=== PATIENT | female | born 1995 | race Asian ===

== ENCOUNTER 2019-04-02 15:25 | Emergency (ER) | payer OTHER ==
[2019-04-02 15:58] VITALS: BP 108/76
--- NOTE | 2019-04-02 17:42 | UC ---
Abdominal Pain Female HPI - HPI Summary HPI Summary: The patient is a 24-year-old female with a 3 day history of suprapubic abdominal pain radiating to her rectum. She has no UTI symptoms. She denies any vaginal discharge or itch. She denies any history of ovarian cysts. She has had nausea. She denies any vomiting or diarrhea. She denies any fever or chills. Her appetite has been fine. - History of Current Complaint Chief Complaint: UCAbdominalPain Stated Complaint: ABDOMINAL PAIN Time Seen by Provider: 04/02/19 17:35 Hx Obtained From: Patient Hx Last Menstrual Period: 03/09/19 Onset/Duration: Gradual Onset, Lasting Days Timing: Constant Severity Initially: Mild Severity Currently: Moderate Pain Intensity: 4 Pain Scale Used: 0-10 Numeric Location: Suprapubic Radiates: Yes Radiates to: Other - rectum Character: Sharp Aggravating Factor(s): Other: - sitting Alleviating Factor(s): Nothing Associated Signs and Symptoms: Positive: Decreased Appetite, Nausea. Negative: Diaphoresis, Fever, Cough, Chest Pain, Dizzy, Back Pain, Constipation, Blood in Stool, Urinary Symptoms, Vaginal Bleeding, Vaginal Discharge, Vomiting, Diarrhea Allergies/Adverse Reactions: Allergies Allergy/AdvReac Type Severity Reaction Status Date / Time No Known Allergies Allergy Verified 04/02/19 15:58 PMH/Surg Hx/FS Hx/Imm Hx Previously Healthy: Yes - Surgical History Surgical History: None - Family History Known Family History: Positive: Non-Contributory - Social History Alcohol Use: None Substance Use Type: None Smoking Status (MU): Never Smoked Tobacco Review of Systems All Other Systems Reviewed And Are Negative: Yes Constitutional: Positive: Negative Skin: Positive: Negative Eyes: Positive: Negative ENT: Positive: Negative Respiratory: Positive: Negative Cardiovascular: Positive: Negative Gastrointestinal: Positive: Abdominal Pain Genitourinary: Positive: Negative Motor: Positive: Negative Neurovascular: Positive: Negative Musculoskeletal: Positive: Negative Neurological: Positive: Negative Psychological: Positive: Negative Physical Exam Triage Information Reviewed: Yes Appearance: Well-Appearing, No Pain Distress, Well-Nourished Vital Signs: Initial Vital Signs Temp 99.3 F 04/02/19 15:51 Pulse 110 04/02/19 15:51 Resp 16 04/02/19 15:51 BP 108/76 04/02/19 15:51 Pulse Ox 100 04/02/19 15:51 Vital Signs Reviewed: Yes Eyes: Positive: Conjunctiva Clear ENT: Positive: Hearing grossly normal, Uvula midline. Negative: Nasal congestion, Nasal drainage, Trismus, Muffled voice, Hoarse voice Dental Exam: Normal Neck: Positive: Supple, Nontender, No Lymphadenopathy Respiratory: Positive: Lungs clear, Normal breath sounds, No respiratory distress, No accessory muscle use, Respiratory distress Cardiovascular: Positive: RRR, No Murmur Abdomen Description: Positive: Soft, Guarding. Negative: Nontender - tender suprapubically, CVA Tenderness (R), CVA Tenderness (L) Pelvic Exam: Positive: Other - pt refused Musculoskeletal Exam: Normal Neurological Exam: Normal Neurological: Positive: Alert Psychological Exam: Normal Skin Exam: Normal Diagnostics - Laboratory Lab Results: pt is a virgin and declines transvaginal U/S as well a pelvic exam - Radiology No standard instances Radiology Interpretation Completed By: Radiologist Summary of Radiographic Findings: RIGHT OVARIAN CYSTS. Abd Pain Female Course/Dx - Differential Dx/Diagnosis Provider Diagnosis: Right ovarian cyst Discharge ED - Sign-Out/Discharge Documenting (check all that apply): Patient Departure All imaging exams completed and their final reports reviewed: Yes - Discharge Plan Condition: Stable Disposition: HOME Prescriptions: Ibuprofen TAB* [Motrin TAB*] 600 mg PO QID PRN #40 tab PRN Reason: Pain Patient Education Materials: Ovarian Cyst (ED) Referrals: Dao Baca MD [Medical Doctor] - 1 Week (if not better) - Billing Disposition and Condition Condition: STABLE Disposition: Home
[2019-04-02] MEDS ORDERED: Ibuprofen TAB* 600 MG PO ONE (19:44)
== END 2019-04-02 20:10 | disposition home or self-care (01) ==
LOC: UCEAST 15:25
DX: N83.201 Unspecified ovarian cyst, right side (principal)
CPT/HCPCS: 76856; 81003; 84702; 87086; 99202; A9270-GY; G0463

== ENCOUNTER 2019-06-02 19:07 | Emergency (ER) | payer OTHER ==
[2019-06-02 19:32] VITALS: BP 123/86
--- NOTE | 2019-06-02 20:00 | UC ---
Dizzy HPI HPI Summary: The patient is a 24-year-old female who has not been feeling well since the end of April. She states at that time she developed some dyspepsia and nausea. Since then every night she has felt some chest tightness and often this awakens her. She has had some dyspepsia. Last night her symptoms kept her up and she was unable to fall back to sleep. She has no cough. She has nausea but no vomiting. Today she has had 3 episodes of diarrhea. She denies fever chills cough. She has a mild headache. She is currently taking final exams. - History Of Current Complaint Chief Complaint: UCChestPain Stated Complaint: DIZZY Time Seen by Provider: 06/02/19 19:11 Hx Obtained From: Patient Hx Last Menstrual Period: 05/29/2019 Onset/Duration: Gradual Onset, Lasting Weeks Timing: Constant Severity Initially: Mild Severity Currently: Moderate Pain Intensity: 7 Pain Scale Used: 0-10 Numeric Character: Lightheaded, Weak Aggravating Factor(s): Nothing Alleviating Factor(s): Nothing Associated Signs And Symptoms: Positive: Nausea, SOB - sometimes at night, Palpitations - today, Decreased Oral Intake. Negative: Vomiting, Diaphoresis, Tinnitus, Chest Pain - chest pressure, Unsteady Gait, Visual Changes, Change In Medication, Change In Diet, OTC Medications - Allergies/Home Medications Allergies/Adverse Reactions: Allergies Allergy/AdvReac Type Severity Reaction Status Date / Time No Known Allergies Allergy Verified 06/02/19 19:24 Home Medications: Home Medications Bismuth Subsalicylate [Pepto-Bismol Max Strength] 525 mg PO Q6H PRN 06/02/19 [ History Confirmed 06/02/19] PMH/Surg Hx/FS Hx/Imm Hx Previously Healthy: Yes - Surgical History Surgical History: None - Family History Known Family History: Positive: Non-Contributory - Social History Alcohol Use: None Substance Use Type: None Smoking Status (MU): Never Smoked Tobacco Review of Systems All Other Systems Reviewed And Are Negative: Yes Constitutional: Positive: Fatigue Skin: Positive: Negative Eyes: Positive: Negative ENT: Positive: Negative Respiratory: Positive: Negative Cardiovascular: Positive: Palpitations, Chest Pain - chest pressure Genitourinary: Positive: Negative Motor: Positive: Negative Neurovascular: Positive: Negative Musculoskeletal: Positive: Negative Neurological: Positive: Negative Psychological: Positive: Negative Physical Exam Triage Information Reviewed: Yes Appearance: Well-Appearing, No Pain Distress, Well-Nourished Vital Signs: Initial Vital Signs Temp 100.6 F 06/02/19 19:27 Pulse 97 06/02/19 19:27 Resp 18 06/02/19 19:27 BP 123/86 06/02/19 19:27 Pulse Ox 100 06/02/19 19:27 Vital Signs Reviewed: Yes Eyes: Positive: Conjunctiva Clear ENT: Positive: Hearing grossly normal, Uvula midline. Negative: Tonsillar exudate, Trismus, Muffled voice, Hoarse voice Neck: Positive: Supple, Nontender, No Lymphadenopathy Respiratory: Positive: Lungs clear, Normal breath sounds, No respiratory distress Cardiovascular: Positive: RRR, No Murmur Abdomen Description: Positive: Nontender, No Organomegaly, Soft. Negative: CVA Tenderness (R), CVA Tenderness (L) Bowel Sounds: Positive: Present Musculoskeletal: Positive: No Edema Neurological: Positive: Alert Psychological Exam: Normal Skin Exam: Normal Diagnostics - EKG Cardiac Rate: NL Cardiac Rhythm: Sinus: Normal Ectopy: None ST Segment: Normal Dizzy Course/Dx - Differential Dx/Diagnosis Provider Diagnosis: Dizziness, Acute diarrhea Discharge ED - Sign-Out/Discharge Documenting (check all that apply): Patient Departure All imaging exams completed and their final reports reviewed: No Studies - Discharge Plan Condition: Stable Disposition: HOME Patient Education Materials: Acute Diarrhea (ED), Dizziness (ED) Referrals: [facility] [Z.BUSINESS, APPLICATION, OTHER] - 2 Days (if not better ) Additional Instructions: blood work pending - Billing Disposition and Condition Condition: STABLE Disposition: Home
[2019-06-03 12:06] LABS: ABS Eosinophils 0.1 10^3/ul (0-0.6); ABS Lymphocytes 1.2 10^3/ul (1.0-4.8); ABS Monocytes 0.3 10^3/ul (0-0.8); ABS Neutrophils 3.4 10^3/ul (1.5-7.7); Eosinophil % 1.6 %; Hematocrit 38 % (35-47); Hemoglobin 12.9 g/dL (12.0-16.0); Lymphocyte % 23.9 %; Mean Corpuscular HGB Conc 34 g/dL (31-36); Mean Corpuscular Hemoglobin 30 pg (27-31); Mean Corpuscular Volume 88 fL (80-97); Mean Platelet Volume 8.5 fL (7.4-10.4); Nucleated Red Blood Cells % 0.1; Platelet Count 285 10^3/uL (150-450); Red Blood Count 4.32 10^6 /uL (3.70-4.87); Red Cell Distribution Width 13 % (10-15)
[2019-06-03 12:22] LABS: BUN/Creatinine Ratio 12.3 (8-20); Calcium 9.3 mg/dL (8.6-10.3); EGFR African American 136.7 (>60); Potassium 3.6 mmol/L (3.5-5.0)
== END 2019-06-02 20:19 | disposition home or self-care (01) ==
LOC: UCEAST 19:07
DX: R42 Dizziness and giddiness (principal); R19.7 Diarrhea, unspecified; R11.0 Nausea; R10.13 Epigastric pain; R06.02 Shortness of breath; R00.2 Palpitations; R53.83 Other fatigue; R07.89 Other chest pain; R51 Headache
CPT/HCPCS: 36415; 80048; 85025; 93005; 99211; G0463

== ENCOUNTER 2019-07-09 22:22 | Emergency (ER) | payer OTHER ==
[2019-07-09] MEDS ORDERED: NS 0.9% 1000 ML** 2,000 ML IV ONE (22:36)
[2019-07-09] MEDS ORDERED: Ondansetron INJ* 2 MG/ML VIAL IV ONE (22:36)
--- NOTE | 2019-07-09 22:51 | ED ---
Abdominal Pain/Female - HPI Summary HPI Summary: Patient complains of umbilical abdominal pain with associated nausea and diarrhea starting at 6 PM today. Pain described as crampy, intermittent, worse before bowel movement and improved after bowel movement. Denies fever, cough, sore throat, CP, SOB, vomiting, urine symptoms, vaginal symptoms, blood in diarrhea. Denies history of recent antibiotics. Patient returned from trip to [place] yesterday. Medical history is none. Abdominal surgical history is none. - History of Current Complaint Chief Complaint: EDAbdPain Stated Complaint: FLU SYMPTOMS PER PT Time Seen by Provider: 07/09/19 22:34 Hx Obtained From: Patient Hx Last Menstrual Period: 05/29/2019 Onset/Duration: Sudden Onset, Lasting Hours Timing: Minutes Severity Initially: Moderate Severity Currently: Moderate Pain Intensity: 6 Pain Scale Used: 0-10 Numeric Location: Umbilical Radiates: No Character: Cramping Aggravating Factor(s): Nothing Alleviating Factor(s): Bowel Movement Associated Signs and Symptoms: Positive: Decreased Appetite, Nausea, Diarrhea Allergies/Adverse Reactions: Allergies Allergy/AdvReac Type Severity Reaction Status Date / Time clostridium butyricum Allergy Palpitation Uncoded 07/09/19 22:27 s PMH/Surg Hx/FS Hx/Imm Hx Endocrine/Hematology History: Denies: Hx Anticoagulant Therapy Cardiovascular History: Reports: Hx Hypertension - hypotension Respiratory History: Reports: Hx Asthma History: Denies: Hx Dialysis Sensory History: Denies: Hx Eye Prosthesis Opthamlomology History: Denies: Hx Legally Blind EENT History: Denies: Hx Deafness Neurological History: Denies: Hx Dementia Infectious Disease History: No Infectious Disease History: Reports: Traveled Outside the in Last 30 Days - [facility] and [facility] - Family History Known Family History: Positive: Non-Contributory - Social History Alcohol Use: None Substance Use Type: Reports: None Smoking Status (MU): Never Smoked Tobacco Review of Systems Constitutional: Negative Eyes: Negative ENT: Negative Cardiovascular: Negative Respiratory: Negative Positive: Abdominal Pain Genitourinary: Negative Musculoskeletal: Negative Skin: Negative Neurological: Negative Psychological: Normal All Other Systems Reviewed And Are Negative: Yes Physical Exam Triage Information Reviewed: Yes Vital Signs On Initial Exam: Initial Vitals Temp Pulse Resp BP Pulse Ox 98.6 F 111 18 114/92 100 07/09/19 22:24 07/09/19 22:24 07/09/19 22:24 07/09/19 22:24 07/09/19 22:24 Vital Signs Reviewed: Yes Appearance: Positive: Well-Appearing Skin: Positive: Warm Head/Face: Positive: Normal Head/Face Inspection Eyes: Positive: Normal Neck: Positive: Supple Respiratory/Lung Sounds: Positive: Clear to Auscultation Cardiovascular: Positive: Normal Abdomen Description: Positive: Nontender Musculoskeletal: Positive: Normal Neurological: Positive: Normal Psychiatric: Positive: Normal AVPU Assessment: Alert - Kristen Coma Scale Best Eye Response: 4 - Spontaneous Best Motor Response: 6 - Obeys Commands Best Verbal Response: 5 - Oriented Coma Scale Total: 15 Procedures - Sedation Patient Received Moderate/Deep Sedation with Procedure: No Diagnostics - Vital Signs Vital Signs Temp Pulse Resp BP Pulse Ox 07/09/19 22:24 98.6 F 111 18 114/92 100 - Laboratory Result Diagrams: 07/09/19 22:53 07/09/19 22:53 Lab Statement: Any lab studies that have been ordered have been reviewed, and results considered in the medical decision making process. Abdominal Pain Fem Course/Dx - Course Course Of Treatment: Patient complains of umbilical abdominal pain with associated nausea and diarrhea starting at 6 PM today. Pain described as crampy , intermittent, worse before bowel movement and improved after bowel movement. Denies fever, cough, sore throat, CP, SOB, vomiting, urine symptoms, vaginal symptoms, blood in diarrhea. Denies history of recent antibiotics. Patient returned from [facility] to [place] yesterday. Medical history is none. Abdominal surgical history is none. Patient initially mildly tachycardic. Self resolved. Vital signs otherwise within normal limits. Labs unremarkable. 1 L NS administered. No active N/V/D here in ED. Symptoms consistent with gastroenteritis. - Diagnoses Provider Diagnoses: Nausea, Diarrhea Discharge ED - Sign-Out/Discharge Documenting (check all that apply): Patient Departure - Discharge Plan Condition: Stable Disposition: HOME Prescriptions: Ondansetron ODT TAB* [Zofran 4 MG Odt TAB*] 4 mg PO Q8H PRN 4 Days #14 tab.odt PRN Reason: Nausea Patient Education Materials: Acute Nausea and Vomiting (ED), Acute Diarrhea (ED ) Referrals: No Primary Care Phys,NOPCP [Primary Care Provider] - Additional Instructions: Take Zofran as directed if needed for nausea. You can get a medicine called Imodium [id number] to help control diarrhea. Drink plenty of fluids to maintain hydration. Follow-up with primary care. Return to the ED for any new or worsening symptoms. - Billing Disposition and Condition Condition: STABLE Disposition: Home
[2019-07-09 23:00] LABS: ABS Basophils 0.1 10^3/ul (0-0.2); ABS Eosinophils 0.1 10^3/ul (0-0.6); ABS Lymphocytes 1.2 10^3/ul (1.0-4.8); ABS Monocytes 0.2 10^3/ul (0-0.8); ABS Neutrophils 2.7 10^3/ul (1.5-7.7); Eosinophil % 2.6 %; Hematocrit 40 % (35-47); Lymphocyte % 27.5 %; Mean Corpuscular HGB Conc 35 g/dL (31-36); Mean Corpuscular Hemoglobin 30 pg (27-31); Mean Corpuscular Volume 86 fL (80-97); Mean Platelet Volume 7.9 fL (7.4-10.4); Platelet Count 318 10^3/uL (150-450); Red Blood Count 4.64 10^6 /uL (3.70-4.87); Red Cell Distribution Width 13 % (10-15); White Blood Count 4.2 10^3/uL (3.5-10.8)
[2019-07-09 23:21] LABS: ALT 16 U/L (7-52); AST 17 U/L (13-39); Albumin 4.7 g/dL (3.2-5.2); Albumin/Globulin Ratio 1.4 (1-3); Alkaline Phosphatase 35 U/L (34-104); Anion Gap 8 mmol/L (2-11); BUN/Creatinine Ratio 14.8 (8-20); Blood Urea Nitrogen 9 mg/dL (6-24); C Reactive Protein < 1.00 mg/L (<8.01); CO2 Carbon Dioxide 26 mmol/L (22-32); Calcium 9.8 mg/dL (8.6-10.3); Chloride 104 mmol/L (101-111); EGFR African American 147.1 (>60); EGFR Non-African American 121.5 (>60); Globulin 3.3 g/dL (2-4); Glucose 103 mg/dL (70-100); Potassium 3.9 mmol/L (3.5-5.0); Sodium 138 mmol/L (135-145)
[2019-07-09 23:28] LABS: HCG Pregnancy < 0.60 mIU/mL
[2019-07-09 23:50] VITALS: BP 118/81
== END 2019-07-09 23:47 | disposition home or self-care (01) ==
LOC: ED 22:22
DX: R11.0 Nausea (principal); R19.7 Diarrhea, unspecified; R10.33 Periumbilical pain
CPT/HCPCS: 36415; 80053; 83690; 84702; 85025; 86140; 96361; 96374; 99283; J2405